=== PATIENT | female | born 1960 | race Caucasian/White ===

== ENCOUNTER 2024-03-02 10:38 | Emergency (ER) | payer MEDICAID ==
[~2024-03-02] VITALS: Ht 172.7 cm; Wt 95.5 kg
[2024-03-02 10:50] VITALS: BP 165/109; PULSE 99; TEMP 98; O2SAT 94
[2024-03-02 12:26] VITALS: RESP 16
[2024-03-02] MEDS: HYDROcodone/acetaminophen 10/325mg tab PO ONE (12:26)
[2024-03-02] MEDS ORDERED: HYDR-3973 PO (12:53)
== END 2024-03-02 13:06 | disposition home or self-care (01) ==
LOC: ER 10:39
DX: S52.501A Unspecified fracture of the lower end of right radius, initial encounter for closed fracture (principal); S52.601A Unspecified fracture of lower end of right ulna, initial encounter for closed fracture; M25.531 Pain in right wrist; F12.90 Cannabis use, unspecified, uncomplicated; W19.XXXA Unspecified fall, initial encounter; Y93.89 Activity, other specified; Y92.89 Other specified places as the place of occurrence of the external cause; Y99.8 Other external cause status
CPT/HCPCS: 29125; 73110; 99284; A4565; A6446; A6449